=== PATIENT | male | born 1990 | race Caucasian/White ===

== ENCOUNTER 2022-03-14 16:12 | Inpatient (IN) | payer OTHER ==
[2022-03-14 17:55] VITALS: BMI 19.7
[2022-03-14] MEDS ORDERED: IBUPROFEN 400 MG TABLET (FP) PO PRN (21:17)
[2022-03-14] MEDS ORDERED: NICOTINE POLACRILEX 2 MG GUM BC PRN (21:17)
[2022-03-14] MEDS ORDERED: LOPERAMIDE HCL 2 MG CAPSULE PO PRN (21:17)
[2022-03-14] MEDS ORDERED: ACETAMINOPHEN 325 MG TABLET (FP) PO PRN (21:17)
[2022-03-14] MEDS ORDERED: MAGNESIUM HYDROX 2400MG/30ML ORAL SUSPENSION 30 ML CUP PO PRN (21:17)
[2022-03-14] MEDS ORDERED: MAGNESIUM CITRATE 300 ML BOTTLE PO PRN (21:17)
[2022-03-14] MEDS ORDERED: guaiFENesin 200 MG/10 ML 10 ML UNIT-DOSE CUPS PO PRN (21:17)
[2022-03-14] MEDS ORDERED: MAG HYDROX/AL HYDROX/SIMETH 30 ML UNIT-DOSE CUP PO PRN (21:17)
[2022-03-14] MEDS ORDERED: P-EPHED 60MG/TRIPROLIDI 2.5MG TABLET PO PRN (21:17)
[2022-03-15] MEDS ORDERED: TUBERCULIN PPD 5 TU/0.1ML VIAL ID ONE (02:04)
[2022-03-15] MEDS: THIAMINE HCL 100 MG TABLET (FP) PO SCH ×2 (02:30→21:55)
[2022-03-15] MEDS: MELATONIN 5 MG TABLETS PO SCH ×2 (02:30→21:55)
[2022-03-15] MEDS: NICOTINE 14 MG/24 HOURS TOPICAL PATCH TD SCH (10:11)
[2022-03-15] MEDS: PRENATAL VITAMINS W/ FOLIC ACID TABLET (FP) PO SCH (10:11)
[2022-03-15 10:39] LABS: HEMATOCRIT 43.1 % (35.4-49); HEMOGLOBIN 14.2 GM/dL (11.7-16.9); MCH 31.8 pg (25.7-33.7); MCHC 32.9 g/dl (32.0-35.9); MEAN CELL VOLUME 96.8 fl (80-96); MEAN PLT VOLUME 7.3 fl (7.5-11.1); PLATELET COUNT 292 10^3/uL (134-434); RBC 4.46 M/mm3 (4.00-5.60); RDW 14.1 % (11.9-15.9); WHITE BLOOD COUNT 7.2 K/mm3 (4.0-10.0)
[2022-03-15 10:47] LABS: CALCIUM 9.2 mg/dL (8.5-10.1)
[2022-03-15 10:48] LABS: BLOOD UREA NITROGEN 18.7 mg/dL (7-18)
[2022-03-15 10:52] LABS: BILIRUBIN,TOTAL 0.4 mg/dL (0.2-1); TOT PROT 5.8 g/dl (6.4-8.2)
[2022-03-15 10:56] LABS: URINE APPEARANCE CLEAR; URINE BILIRUBIN NEGATIVE (NEGATIVE); URINE COLOR YELLOW; URINE GLUCOSE (UA) NEGATIVE (NEGATIVE); URINE KETONE NEGATIVE (NEGATIVE); URINE LEUK ESTERASE NEGATIVE (NEGATIVE); URINE NITRITE NEGATIVE (NEGATIVE); URINE PROTEIN NEGATIVE (NEGATIVE); URINE UROBILINOGEN 0.2 mg/dL (0.2-1.0)
[2022-03-15 11:01] LABS: CREATININE 0.9 mg/dL (0.55-1.3)
[2022-03-15] MEDS ORDERED: FLU VACC QS2021-22(6MOS UP)/PF 60 MCG/0.5 ML SYRINGE IM ONE (12:00)
[2022-03-15 12:11] LABS: SYPHILIS W/ RPR CONF NON-REACTIVE (NONREACTIVE)
[2022-03-16] MEDS: NICOTINE 14 MG/24 HOURS TOPICAL PATCH TD SCH (10:00)
[2022-03-16] MEDS: PRENATAL VITAMINS W/ FOLIC ACID TABLET (FP) PO SCH (10:00)
[2022-03-16] MEDS: THIAMINE HCL 100 MG TABLET (FP) PO SCH (21:36)
[2022-03-16] MEDS: MELATONIN 5 MG TABLETS PO SCH (21:36)
[2022-03-17] MEDS: NICOTINE 14 MG/24 HOURS TOPICAL PATCH TD SCH (10:02)
[2022-03-17] MEDS: PRENATAL VITAMINS W/ FOLIC ACID TABLET (FP) PO SCH (10:02)
[2022-03-17] MEDS: THIAMINE HCL 100 MG TABLET (FP) PO SCH (21:28)
[2022-03-17] MEDS: MELATONIN 5 MG TABLETS PO SCH (21:28)
[2022-03-18] MEDS: NICOTINE 14 MG/24 HOURS TOPICAL PATCH TD SCH (09:52)
[2022-03-18] MEDS: PRENATAL VITAMINS W/ FOLIC ACID TABLET (FP) PO SCH (09:53)
[2022-03-18] MEDS: MELATONIN 5 MG TABLETS PO SCH (21:21)
[2022-03-18] MEDS: THIAMINE HCL 100 MG TABLET (FP) PO SCH (21:21)
[2022-03-19] MEDS: PRENATAL VITAMINS W/ FOLIC ACID TABLET (FP) PO SCH (09:05)
[2022-03-19] MEDS: NICOTINE 14 MG/24 HOURS TOPICAL PATCH TD SCH (09:05)
[2022-03-19] MEDS: MELATONIN 5 MG TABLETS PO SCH (21:18)
[2022-03-19] MEDS: THIAMINE HCL 100 MG TABLET (FP) PO SCH (21:18)
[2022-03-20] MEDS: PRENATAL VITAMINS W/ FOLIC ACID TABLET (FP) PO SCH (09:09)
[2022-03-20] MEDS: NICOTINE 14 MG/24 HOURS TOPICAL PATCH TD SCH (09:10)
[2022-03-20] MEDS: MELATONIN 5 MG TABLETS PO SCH (21:10)
[2022-03-20] MEDS: THIAMINE HCL 100 MG TABLET (FP) PO SCH (21:10)
[2022-03-21 00:14] LABS: SARS-CoV-2 NAA Not Detected (Not Detected)
[2022-03-21] MEDS: PRENATAL VITAMINS W/ FOLIC ACID TABLET (FP) PO SCH (10:21)
[2022-03-21] MEDS: NICOTINE 14 MG/24 HOURS TOPICAL PATCH TD SCH (10:21)
[2022-03-21] MEDS: MELATONIN 5 MG TABLETS PO SCH (21:05)
[2022-03-21] MEDS: THIAMINE HCL 100 MG TABLET (FP) PO SCH (21:05)
[2022-03-21] MEDS: TOLNAFTATE 1% CREAM 15 GM TUBE TP SCH (21:06)
[2022-03-22] MEDS: NICOTINE 14 MG/24 HOURS TOPICAL PATCH TD SCH (09:17)
[2022-03-22] MEDS: PRENATAL VITAMINS W/ FOLIC ACID TABLET (FP) PO SCH (09:18)
[2022-03-22] MEDS: TOLNAFTATE 1% CREAM 15 GM TUBE TP SCH ×2 (09:18→21:01)
[2022-03-22] MEDS: MELATONIN 5 MG TABLETS PO SCH (21:00)
[2022-03-22] MEDS: THIAMINE HCL 100 MG TABLET (FP) PO SCH (21:00)
[2022-03-23] MEDS: NICOTINE 14 MG/24 HOURS TOPICAL PATCH TD SCH (09:23)
[2022-03-23] MEDS: TOLNAFTATE 1% CREAM 15 GM TUBE TP SCH ×2 (09:23→21:11)
[2022-03-23] MEDS: PRENATAL VITAMINS W/ FOLIC ACID TABLET (FP) PO SCH (09:23)
[2022-03-23] MEDS: THIAMINE HCL 100 MG TABLET (FP) PO SCH (21:10)
[2022-03-23] MEDS: MELATONIN 5 MG TABLETS PO SCH (21:10)
[2022-03-24 06:27] VITALS: BP 110/74; PULSE 77; TEMP 97.1
[2022-03-24] MEDS: BACITRACIN 0.9 GM PACKET TP SCH (10:23)
[2022-03-24] MEDS: PRENATAL VITAMINS W/ FOLIC ACID TABLET (FP) PO SCH (10:23)
[2022-03-24] MEDS: TOLNAFTATE 1% CREAM 15 GM TUBE TP SCH ×2 (10:23→21:12)
[2022-03-24] MEDS: NICOTINE 14 MG/24 HOURS TOPICAL PATCH TD SCH (10:23)
[2022-03-24] MEDS: THIAMINE HCL 100 MG TABLET (FP) PO SCH (21:12)
[2022-03-24] MEDS: MELATONIN 5 MG TABLETS PO SCH (21:12)
[2022-03-25] MEDS: BACITRACIN 0.9 GM PACKET TP SCH (09:34)
[2022-03-25] MEDS: PRENATAL VITAMINS W/ FOLIC ACID TABLET (FP) PO SCH (09:34)
[2022-03-25] MEDS: TOLNAFTATE 1% CREAM 15 GM TUBE TP SCH ×2 (09:34→21:21)
[2022-03-25] MEDS: NICOTINE 14 MG/24 HOURS TOPICAL PATCH TD SCH (09:34)
[2022-03-25] MEDS: THIAMINE HCL 100 MG TABLET (FP) PO SCH (21:20)
[2022-03-25] MEDS: MELATONIN 5 MG TABLETS PO SCH (21:20)
[2022-03-26] MEDS: PRENATAL VITAMINS W/ FOLIC ACID TABLET (FP) PO SCH (09:01)
[2022-03-26] MEDS: BACITRACIN 0.9 GM PACKET TP SCH (09:02)
[2022-03-26] MEDS: NICOTINE 14 MG/24 HOURS TOPICAL PATCH TD SCH (09:02)
[2022-03-26] MEDS: TOLNAFTATE 1% CREAM 15 GM TUBE TP SCH (09:02)
== END 2022-03-26 09:22 | disposition home or self-care (01) | DRG 772 ==
LOC: YASAS 16:12 → Y3E 03-15 01:25
PROVIDERS: ADMIT Allergy & Immunology; ATTEND Allergy & Immunology
PROC: HZ42ZZZ Group Counseling for Substance Abuse Treatment, Cognitive-Behavioral (ICD-10-PCS; principal; 2022-03-15)
DX: F10.20 Alcohol dependence, uncomplicated (principal); F16.20 Hallucinogen dependence, uncomplicated; F12.20 Cannabis dependence, uncomplicated; F17.210 Nicotine dependence, cigarettes, uncomplicated; Z28.310 Unvaccinated for COVID-19
CPT/HCPCS: 36415; 80053; 81003; 85027; 86780; 86803; 90686; 93005; 93010; C9803-CS; G0008; U0003; U0005